=== PATIENT | male | born 1950 | race Caucasian/White ===

== ENCOUNTER → 2017-06-05 | Outpatient (CLI) | payer MEDICARE, BC ==
--- NOTE | 2017-06-05 10:47 | Diagnostic Imaging Report ---
INDICATION: Fall and right hip pain. TIME OF EXAM: 10:44 AM 2 views of the left hip were obtained. FINDINGS: The femoral acetabular alignment is normal. The joint space is well maintained. The femoral head and neck are intact. No fracture or dislocation is seen. The right-sided rami are intact. IMPRESSION: No acute bony abnormality is detected. Dictated by: Dictated on workstation # [id number]
--- NOTE | 2017-06-05 10:50 | Diagnostic Imaging Report ---
INDICATION: Fall and pelvic pain. TIME OF EXAM: 10:45 AM FINDINGS: Frontal and oblique views of the sacroiliac joints were obtained. SI joints are not widened. There is no evidence of ankylosis, sclerosis or osseous erosion. Sacrum is unremarkable. IMPRESSION: No acute bony abnormality is detected. Dictated by: Dictated on workstation # [id number]
--- NOTE | 2017-06-05 10:51 | Diagnostic Imaging Report ---
INDICATION: Fall, pelvic pain. TIME OF EXAMINATION: 10:45 a.m. FINDINGS: Frontal and lateral views of the sacrum and coccyx were obtained. Sacrococcygeal alignment appears normal. No fracture is seen. Sacral arcuate lines are intact. SI joints are not widened. Symphysis is unremarkable. IMPRESSION: No acute bony abnormality is detected. Dictated by: Dictated on workstation # [id number]
== END ==
LOC: RAD 10:11
PROVIDERS: ATTEND Family Medicine
DX: M25.551 Pain in right hip (principal); M53.3 Sacrococcygeal disorders, not elsewhere classified; R10.2 Pelvic and perineal pain; W19.XXXA Unspecified fall, initial encounter
CPT/HCPCS: 72202; 72220; 73502

== ENCOUNTER → 2018-10-16 | Outpatient (CLI) | payer MEDICARE, BC ==
[~2018-10-16] MED LIST: HOLD METFORMIN - RECEIVED CONTRAST 20 ML VIAL IV SCH; IOHEXOL 350 MG/ML 100 ML (OMNIPAQUE 350) VIAL IV ONE; NS 100 ML (IVPB) BAG IV ONE
[2018-10-16 11:46] LABS: BUN/CREATININE RATIO 16; CREATININE SERUM 0.94 MG/DL (0.60-1.30); GFR ESTIMATED > 60
--- NOTE | 2018-10-16 14:00 | Diagnostic Imaging Report ---
PROCEDURE: CT chest with contrast only. TECHNIQUE: Multiple contiguous axial images were obtained through the chest after administration of intravenous contrast. Auto Exposure Controls were utilized during the CT exam to meet ALARA standards for radiation dose reduction. INDICATION: Pneumonia. COMPARISON: No prior studies are available for comparison. FINDINGS: No axillary lymphadenopathy is detected. No mediastinal or hilar lymphadenopathy is identified. No pericardial or pleural fluid is detected. Parenchymal evaluation does show central airways to be patent. There is a calcified granuloma in the right upper lobe. Minimal linear scarring or atelectasis in the right lower lobe is seen. No infiltrate is identified. No mass is detected. The upper abdomen is unremarkable. IMPRESSION: Essentially unremarkable CT of the chest with contrast. No thoracic lymphadenopathy or evidence of pulmonary mass or infiltrate is identified. Dictated by: Dictated on workstation # [id number]
== END ==
LOC: RAD 11:12
PROVIDERS: ATTEND Nurse Practitioner Family
DX: J18.9 Pneumonia, unspecified organism (principal); J30.9 Allergic rhinitis, unspecified; Z87.891 Personal history of nicotine dependence
CPT/HCPCS: 36415; 71260; 82565; 84520

== ENCOUNTER → 2018-10-26 | Outpatient (CLI) | payer MEDICARE, BC ==
[~2018-10-26] MED LIST changes: -HOLD METFORMIN - RECEIVED CONTRAST 20 ML VIAL IV SCH; -IOHEXOL 350 MG/ML 100 ML (OMNIPAQUE 350) VIAL IV ONE; -NS 100 ML (IVPB) BAG IV ONE; +RT-ALBUTEROL SULF 2.5 MG/3 ML PRE-MIX VIAL INH ONE
== END ==
LOC: RT 10:13
PROVIDERS: ATTEND Nurse Practitioner Family
DX: J30.9 Allergic rhinitis, unspecified (principal); Z87.891 Personal history of nicotine dependence
CPT/HCPCS: 94060; 94726; 94729

== ENCOUNTER 2019-10-03 07:15 | Outpatient (RCR) | payer MEDICARE, BC ==
[~2019-10-03] VITALS: Ht 175 cm; Wt 77.2 kg
[~2019-10-03 07:15] MED LIST changes: +ASCO500T7 PO; +CALC-927 PO; +FLUT15.845 NS; +GLIP5TAB13 PO; +LISI1TAB25 PO; +LOVA20TA2 PO; +METF-397 PO; +OMEP20CA18 PO; +PIOG30TA38 PO; -RT-ALBUTEROL SULF 2.5 MG/3 ML PRE-MIX VIAL INH ONE; +VITA1CAP PO
== END 2019-10-03 10:22 | disposition home or self-care (01) ==
LOC: PREOP 07:15
PROVIDERS: ATTEND Surgery
DX: Z01.818 Encounter for other preprocedural examination (principal)
CPT/HCPCS: 87635

== ENCOUNTER 2019-10-07 07:19 | Day surgery (SDC) | payer MEDICARE, BC ==
[~2019-10-07] VITALS: Ht 175 cm; Wt 77.2 kg
--- OUTSIDE RECORDS SUMMARY | 2019-10-07 07:23 | XMS REPORT | Continuity of Care Document ---
Author Organization Unknown Address Unknown Phone Unavailable Allergies Active Description Code Type Severity Reaction Onset Reported/Identified Relationship to Patient Clinical Status Yes No Allergy Information Available [id number] Drug Allergy Unknown N/A 019 Yes No Known Drug Allergies [id number] Drug Allergy Unknown N/A 10/01/2019 Medications There is no data. Problems Date Dx Coded Attending Type Code Diagnosis Diagnosed By 02/16/1021 GUILLERMO DE LEON DO Ot Z01.8 18 ENCOUNTER FOR OTHER PREPROCEDURAL EXAMIN 06/06/2017 ADRIAN BECERRA MD Ot M25.551 PAIN IN RIGHT HIP 06/06/2017 ADRIAN BECERRA MD, Ot M53. 3 SACROCOCCYGEAL DISORDERS, NOT ELSEWHERE 06/06/2017 ADRIAN BECERRA MD Ot W19.XXXA UNSPECIFIED FALL, INITIAL ENCOUNTER 06/06/2017 ADRIAN BECERRA MD, Ot M25.551 PAIN IN RIGHT HIP 06/06/2017 ADRIAN BECERRA MD, Ot M53. 3 SACROCOCCYGEAL DISORDERS, NOT ELSEWHERE 06/06/2017 ADRIAN BECERRA MD Ot R10. 2 PELVIC AND PERINEAL PAIN 06/06/2017 ADRIAN BECERRA MD Ot W19.XXXA UNSPECIFIED FALL, INITIAL ENCOUNTER 10/18/2018 KAROLINA ALEXIS FISH CONSERVATIONIST Ot J18.9 PNEUMONIA, UNSPECIFIED ORGANISM 10/18/2018 KAROLINA ALEXIS FISH CONSERVATIONIST Ot J30.9 ALLERGIC RHINITIS, UNSPECIFIED 10/18/2018 KAROLINA ALEXIS FISH CONSERVATIONIST Ot Z87.891 PERSONAL HISTORY OF NICOTINE DEPENDENCE 10/26/2018 ADRIAN BECERRA MD Ot M25.551 PAIN IN RIGHT HIP 10/26/2018 ADRIAN BECERRA MD Ot M53. 3 SACROCOCCYGEAL DISORDERS, NOT ELSEWHERE 10/26/2018 ADRIAN BECERRA MD Ot R10. 2 PELVIC AND PERINEAL PAIN 10/26/2018 ADRIAN BECERRA MD Ot W19.XXXA UNSPECIFIED FALL, INITIAL ENCOUNTER 10/26/2018 KAROLINA ALEXIS FISH CONSERVATIONIST Ot J18.9 PNEUMONIA, UNSPECIFIED ORGANISM 10/26/2018 VANESAKAROLINA FISH CONSERVATIONIST Ot J30.9 ALLERGIC RHINITIS, UNSPECIFIED 10/26/2018 VANESA, KAROLINA Srivastava FISH CONSERVATIONIST Ot Z87.891 PERSONAL HISTORY OF NICOTINE DEPENDENCE 11/02/2018 VANESA KAROLINA Srivastava FISH CONSERVATIONIST Ot J30.9 ALLERGIC RHINITIS, UNSPECIFIED 11/02/2018 VANESAKAROLINA FISH CONSERVATIONIST Ot Z87.891 PERSONAL HISTORY OF NICOTINE DEPENDENCE 11/06/2018 VANESAKAROLINA FISH CONSERVATIONIST Ot J18.9 PNEUMONIA, UNSPECIFIED ORGANISM 11/06/2018 VANESA, KAROLINA Srivastava FISH CONSERVATIONIST Ot J30.9 ALLERGIC RHINITIS, UNSPECIFIED 11/06/2018 VANESA, KAROLINA Srivastava FISH CONSERVATIONIST Ot Z87.891 PERSONAL HISTORY OF NICOTINE DEPENDENCE 11/22/2018 KAROLINA ALEXIS APRN Ot J30.9 ALLERGIC RHINITIS, UNSPECIFIED 11/22/2018 KAROLINA ALEXIS FISH CONSERVATIONIST Ot Z87.891 PERSONAL HISTORY OF NICOTINE DEPENDENCE 10/03/2019 GUILLERMO DE LEON DO Ot Z01.8 18 ENCOUNTER FOR OTHER PREPROCEDURAL EXAMIN Procedures There is no data. Results There is no data. Encounters ACCT No. Visit Date/Time Discharge Status Pt. Type Provider Facility Loc./Unit Complaint [id number] 10/03/2019 07:15:00 020 10:22:00 DIS Outpatient GUILLERMO DE LEON DO [facility] PREOP RECTAL BLEEDING [id number] 10/26/2018 10:13:00 019 23:59:59 CLS Outpatient KAROLINA ALEXIS APRN [facility] RT HISTORY OF SMOK ING, COUGH [id number] 10/16/2018 11:12:00 019 23:59:59 CLS Outpatient KAROLINA ALEXIS APRN [facility] RAD DYSPNEA, ALLERG IC RHINITIS [id number] 06/05/2017 10:11:00 018 23:59:59 CLS Outpatient ADRIAN BECERRA MD [facility] RAD LOW BACK SACROILIAC LILLY N [id number] 10/07/2019 08:30:00 P EN Preadmit GUILLERMO DE LEON DO [facility] ENDO RECTAL BLEEDING.
--- NOTE | 2019-10-07 07:29 | Progress Note-Pre Operative ---
Pre-Operative Progress Note H&P Reviewed The H&P was reviewed, patient examined and no changes noted. Time Seen by Provider: 07:27 Date H&P Reviewed: Oct 07, 2019 Time H&P Reviewed: : Pre-Operative Diagnosis: Rectal bleed GUILLERMO DE LEON DO Oct 07, 2019 07:29
[2019-10-07 07:30] VITALS: BP 121/76
[2019-10-07] MEDS ORDERED: LACTATED RINGERS 1,000 ML IV STA (07:31)
[2019-10-07] MEDS ORDERED: proPOfol 200 MG/20 ML (DIPRIVAN) VIAL IV ONE (07:46)
[2019-10-07] MEDS ORDERED: MIDAZOLAM 2 MG/2 ML (VERSED) VIAL ONE (07:46)
[2019-10-07 08:15] VITALS: BP 126/80
--- NOTE | 2019-10-07 08:16 | Progress Note-Post Operative ---
Post-Operative Progess Note Surgeon (s)/Railroad Car Repairman (s) Surgeon GUILLERMO DE LEON DO Railroad Car Repairman: none Pre-Operative Diagnosis Rectal bleed Post-Operative Diagnosis Polyp Int hemorrhoids Procedure & Operative Findings Date of Procedure 10/07/19 Procedure Performed/Findings Colon with hot bx Anesthesia Type IV sedation by anesthesia Estimated Blood Loss Estimated blood loss (mL): scant Specimens/Packing Specimens Removed descending colon polyp GUILLERMO DE LEON DO Oct 07, 2019 08:16
--- NOTE | 2019-10-07 08:17 | Endoscopy Discharge Instruct ---
Endo Procedure/Findings Findings 1.: Polyp 2.: Internal Hemorrhoids Discharge Instructions - Activity: You might feel a little sleepy until tomorrow. This is due to the medicine you received to relax you. Until tomorrow, you should: NOT drive a car, operate machinery or power tools. NOT drink any alcoholic beverages. NOT make any important decisions or sign importortant papers. Do not return to work until tomorrow, unless otherwise instructed. Resume previous activities tomorrow. Diet: Start by taking liquids. If you tolerate liquids, advance to solid food. make an appointment for one week 1.: Colonscopy in 5 years Notify Physician - If you experience excessive bleeding, unusual abdominal pain, fever, or chest pain, contact your doctor immediately. GUILLERMO DE LEON DO Oct 07, 2019 08:17
[2019-10-07 08:20] VITALS: BP 121/76
--- NOTE | 2019-10-07 08:20 | Anesthesia-General Post-Op ---
MAC Patient Condition Mental Status/LOC: Same as Preop Cardiovascular: Satisfactory Nausea/Vomiting: Absent Respiratory: Satisfactory Pain: Controlled Complications: Absent Post Op Complications Complications None Follow Up Care/Instructions Patient Instructions None needed. Anesthesiology Discharge Order Discharge Order Patient is doing well, no complaints, stable vital signs, no apparent adverse anesthesia problems. DANIEL AL DO Oct 07, 2019 08:20
[2019-10-07 08:45] VITALS: BP 125/81
[2019-10-07 09:05] VITALS: BP 125/81
--- NOTE | 2019-10-08 03:56 | OPERATIVE REPORT ---
DATE OF SERVICE: 10/07/2019 PREOPERATIVE DIAGNOSIS: Rectal bleed. POSTOPERATIVE DIAGNOSES: Descending colon polyp and internal hemorrhoids. PROCEDURE: Colonoscopy with hot biopsy. SURGEON: Jack Maria DO PROFESSIONAL DEVELOPMENT INSTRUCTOR: None. ANESTHESIA: IV sedation by the anesthesiologist. SPECIMEN: Polyp biopsy from the descending colon. BLOOD LOSS: Scant. FLUIDS: Per anesthesia. POSTOPERATIVE CONDITION: Stable. INDICATION FOR PROCEDURE: The patient is a 69-year-old male who noted some rectal bleeding and clots and needed to get a workup. FINDINGS: The patient had some grade I to II internal hemorrhoids, which most likely causes bleeding and he had a small polyp that we almost completely removed with hot biopsy. PROCEDURE NOTE: After informed consent was obtained, the patient was brought to the endoscopy suite, placed in bed in left lateral decubitus position. He was administered IV sedation by the anesthesiologist who then monitored his vitals the entire time, heart rate, blood pressure and pulse ox and the scope was inserted, pushed all the way to about 150 cm, able to get to the cecum, took a picture of appendiceal orifice, noted the ileocecal valve and then slowly withdrew the scope insufflating to look at the circumferentially at the ochoa looking at the cecum, up the ascending colon to the hepatic flexure and then down the transverse colon, the splenic flexure, into the descending colon. In the descending colon, saw small flat polyp. I elected do a hot biopsy of this, looked like completely with hot biopsy and then continued down through the sigmoid into the rectum, retroflexed in the rectal vault, saw some minimal internal hemorrhoids, maybe grade I to II, took a picture and then removed the scope. The patient tolerated the procedure, recovered in endoscopy suite. Job ID: [id number] DocumentID: [id number] Dictated Date: 10/07/2019 20:27:13 Emt I/85 Date: 10/08/2019 03:56:21 Dictated By: JACK MARIA DO
== END 2019-10-07 09:05 | disposition home or self-care (01) ==
LOC: ENDO 07:19
PROVIDERS: ATTEND Surgery
DX: D12.4 Benign neoplasm of descending colon (principal); K62.5 Hemorrhage of anus and rectum; K64.8 Other hemorrhoids; K64.1 Second degree hemorrhoids; K21.9 Gastro-esophageal reflux disease without esophagitis; J44.9 Chronic obstructive pulmonary disease, unspecified; E11.9 Type 2 diabetes mellitus without complications; I10 Essential (primary) hypertension; Z79.51 Long term (current) use of inhaled steroids; Z79.84 Long term (current) use of oral hypoglycemic drugs; Z79.899 Other long term (current) drug therapy; Z86.010 Personal history of colon polyps; Z87.891 Personal history of nicotine dependence; Z80.9 Family history of malignant neoplasm, unspecified
CPT/HCPCS: 88305

== ENCOUNTER 2021-04-24 08:41 | Emergency (ER) | payer MEDICARE, BC ==
[~2021-04-24] VITALS: Ht 172 cm; Wt 80.0 kg
[~2021-04-24 08:41] MED LIST changes: -ACHD5005 PO; -CEPH500T PO; -CIPR500T5 PO; -ONDA4TAB11 SL; -TMSL.4C PO
[2021-04-24] MEDS ORDERED: LACTATED RINGERS 1,000 ML IV ONE ×3 (08:53→10:30)
[2021-04-24] MEDS ORDERED: ONDANSETRON 4 MG/2 ML (SDV) Z0FRAN ONE (08:53)
[2021-04-24] MEDS ORDERED: KETOROLAC 30 MG/ML VIAL ONE (08:53)
[2021-04-24] MEDS ORDERED: ONDANSETRON 4 MG/2 ML (SDV) Z0FRAN IVP ONE (09:00)
[2021-04-24] MEDS ORDERED: KETOROLAC 30 MG/ML VIAL IVP ONE (09:00)
[2021-04-24 09:01] LABS: BASOPHILS % (AUTO) 0 % (0-10); EOSINOPHILS % (AUTO) 0 % (0-10); HEMATOCRIT 46 % (40-54); HEMOGLOBIN 14.6 g/dL (13.3-17.7); LYMPHOCYTES # (AUTO) 1.2 10^3/uL (1.0-4.0); LYMPHOCYTES % (AUTO) 14 % (12-44); MEAN CORPUSCULAR HEMOGLOBIN 27 pg (25-34); MEAN CORPUSCULAR HGB CONC 32 g/dL (32-36); MEAN CORPUSCULAR VOLUME 86 fL (80-99); MEAN PLATELET VOLUME 9.5 fL (9.0-12.2); MONOCYTES # (AUTO) 0.7 10^3/uL (0.0-1.0); MONOCYTES % (AUTO) 8 % (0-12); NEUTROPHILS # (AUTO) 6.8 10^3/uL (1.8-7.8); NEUTROPHILS % (AUTO) 77 % (42-75); PLATELET COUNT 296 10^3/uL (130-400); WHITE BLOOD COUNT 8.9 10^3/uL (4.3-11.0)
[2021-04-24 09:17] LABS: ALBUMIN 4.2 GM/DL (3.2-4.5); POTASSIUM 4.2 MMOL/L (3.6-5.0)
[2021-04-24 09:18] LABS: CALCIUM 9.4 MG/DL (8.5-10.1)
[2021-04-24 09:19] LABS: TOTAL PROTEIN 7.8 GM/DL (6.4-8.2)
[2021-04-24 09:21] LABS: BILIRUBIN,TOTAL 0.6 MG/DL (0.1-1.0)
[2021-04-24 09:23] LABS: CREATININE SERUM 1.19 MG/DL (0.60-1.30)
--- NOTE | 2021-04-24 09:42 | ED General ---
General Chief Complaint: Back Problems Stated Complaint: KIDNEY STONE Nursing Triage Note: PT AMB TO RM 6 PT CO OF L SIDED KIDNEYSTONE PAIN, STARTED ON MONDAY. PT STATES HAS TAKEN A HYDROCODONE EARLIER THIS AM. Source of Information: Patient Exam Limitations: No Limitations History of Present Illness Date Seen by Provider: Apr 24, 2021 Time Seen by Provider: 08:45 Initial Comments This is 71-year-old gentleman presents to the emergency room with complaints of left lower back and flank pain with associated nausea. He has history of ureteral stones and states this feels similar. He had questionable blood in his urine earlier. He denies any other acute symptoms. This pain started yeste rday. He took a leftover hydrocodone this morning. He has never required interventions to treat the prior kidney stones. Allergies and Home Medications Allergies Coded Allergies: No Known Drug Allergies (Unverified , 10/01/19) Patient Home Medication List Home Medication List Reviewed: Yes Ascorbic Acid (Ascorbic Acid) 500 Mg Tablet, 500 MG PO DAILY, (Reported) Entered as Reported by: HARDEEP CAZARES on 10/01/19 1308 Calcium Carb/Mag Ox/Zinc Sulf (Mpszakw-Srusgntey-Dosz Tablet) 1 Each Tablet, 1 EACH PO DAILY, (Reported) Entered as Reported by: HARDEEP CAZARES on 10/01/19 1308 Ciprofloxacin HCl (Ciprofloxacin HCl) 500 Mg Tablet, 500 MG PO BID Prescribed by: NOÉ MELISSA on 04/24/21 1630 Fluticasone Propionate (Fluticasone Propionate) 15.8 Ml [place].susp, 15.8 ML NS DAILY, (Reported) Entered as Reported by: HARDEEP CAZARES on 10/01/19 1308 Glipizide (Glipizide) 5 Mg Tablet, 10 MG PO BID, (Reported) Entered as Reported by: HARDEEP CAZARES on 10/01/19 1308 Hydrocodone/Acetaminophen (Hydrocodone-Acetamin 5-325 mg) 1 Each Tablet, 1-2 TAB PO Q4H PRN for PAIN-MODERATE (5-7) Prescribed by: NOÉ MELISSA on 04/24/21 1021 Lisinopril/Hydrochlorothiazide (Lisinopril-Hctz 20-12.5 mg Tab) 1 Each Tablet, 1 EACH PO DAILY, (Reported) Entered as Reported by: HARDEEP CAZARES on 10/01/19 1308 Lovastatin (Lovastatin) 20 Mg Tablet, 20 MG PO DAILY, (Reported) Entered as Reported by: HARDEEP CAZARES on 10/01/19 1308 Metformin HCl (Metformin HCl) 500 Mg Tablet, 500 MG PO TID, (Reported) Entered as Reported by: HARDEEP CAZARES on 10/01/19 1308 Omeprazole (Omeprazole) 20 Mg Capsule.dr, 20 MG PO DAILY, (Reported) Entered as Reported by: HARDEEP CAZARES on 10/01/19 1308 Ondansetron (Ondansetron Odt) 4 Mg Tab.rapdis, 4 MG SL Q4H PRN for NAUSEA/VOMITING Prescribed by: NOÉ MELISSA on 04/24/21 1021 Pioglitazone HCl (Actos) 30 Mg Tablet, 30 MG PO DAILY, (Reported) Entered as Reported by: HARDEEP CAZARES on 10/01/19 130 Tamsulosin HCl (Flomax) 0.4 Mg Cap, 0.4 MG PO DAILY Prescribed by: NOÉ MELISSA on 04/24/21 1021 Vitamin B Complex (Vitamin B Complex) 1 Each Capsule, 1 EACH PO DAILY, (Reported) Entered as Reported by: HARDEEP CAZARES on 10/01/19 1308 Review of Systems Review of Systems Constitutional: no symptoms reported EENTM: no symptoms reported Respiratory: no symptoms reported Cardiovascular: no symptoms reported Gastrointestinal: see HPI Genitourinary: see HPI Musculoskeletal: no symptoms reported Skin: no symptoms reported Psychiatric/Neurological: No Symptoms Reported Hematologic/Lymphatic: No Symptoms Reported Past Qnbxbiw-Nqxscl-Dolrfp Hx Patient Social History Tobacco Use?: No Substance use?: No Alcohol Use?: No Pt feels they are or have been: No Seasonal Allergies Seasonal Allergies: Yes Past Medical History Surgeries: Yes (HENORRHOIDECTOMY, CATARACTS) Tonsillectomy, Vasectomy Respiratory: Yes (MILD) COPD Cardiac: Yes High Cholesterol, Hypertension, Valvular Heart Disease Neurological: No Sexually Transmitted Disease: No HIV/AIDS: No Genitourinary: Yes Kidney Stones Gastrointestinal: Yes (RECTAL BLEEDING) Gastroesophageal Reflux, Chronic Diarrhea Musculoskeletal: No Endocrine: Yes Diabetes, Non-Insulin dep HEENT: Yes (GLASSES, DENTURES) Loss of Vision: Denies Hearing Impairment: Denies Cancer: No Psychosocial: No Integumentary: No Blood Disorders: No Adverse Reaction/Blood Tranf: No (N/A) Physical Exam Vital Signs Vital Signs - First Documented 04/24/21 08:45 Temp 36.0 Pulse 103 Resp 18 B/P (MAP) 149/96 (113) Pulse Ox 97 O2 Delivery Room Air Capillary Refill : Less Than 3 Seconds Height, Weight, BMI Height: '" Weight: lbs. oz. kg; 27.00 BMI Method: General Appearance: No Apparent Distress, WD/WN HEENT: PERRL/EOMI, Normal ENT Inspection Respiratory: Lungs Clear, Normal Breath Sounds, No Accessory Muscle Use Cardiovascular: Regular Rate, Rhythm, No Edema, No Murmur Gastrointestinal: Normal Bowel Sounds, Non Tender, Soft Back: Normal Inspection, No CVA Tenderness, No Vertebral Tenderness Extremity: Normal Inspection, No Pedal Edema Neurologic/Psychiatric: Alert, Oriented x3, No Motor/Sensory Deficits, Normal Mood/Affect, refrigeration mechanic helper II-XII Norm as Tested Skin: Normal Color, Warm/Dry Progress/Results/Core Measures Suspected Sepsis SIRS Temperature: Pulse: 103 Respiratory Rate: 18 Laboratory Tests 04/24/21 08:48: White Blood Count 8.9 Blood Pressure 149 /96 Mean: 113 Laboratory Tests 04/24/21 08:48: Creatinine 1.19, Platelet Count 296, Total Bilirubin 0.6 Results/Orders Lab Results Laboratory Tests Test 04/24/21 08:48 04/24/21 16:00 Range/Units White Blood Count 8.9 4.3-11.0 10^3/uL Red Blood Count 5.33 4.30-5.52 10^6/uL Hemoglobin 14.6 13.3-17.7 g/dL Hematocrit 46 40-54 % Mean Corpuscular Volume 86 80-99 fL Mean Corpuscular Hemoglobin 27 25-34 pg Mean Corpuscular Hemoglobin Concent 32 32-36 g/dL Red Cell Distribution Width 15.6 H 10.0-14.5 % Platelet Count 296 130-400 10^3/uL Mean Platelet Volume 9.5 9.0-12.2 fL Immature Granulocyte % (Auto) 1 % Neutrophils (%) (Auto) 77 H 42-75 % Lymphocytes (%) (Auto) 14 12-44 % Monocytes (%) (Auto) 8 0-12 % Eosinophils (%) (Auto) 0 0-10 % Basophils (%) (Auto) 0 0-10 % Neutrophils # (Auto) 6.8 1.8-7.8 10^3/uL Lymphocytes # (Auto) 1.2 1.0-4.0 10^3/uL Monocytes # (Auto) 0.7 0.0-1.0 10^3/uL Eosinophils # (Auto) 0.0 0.0-0.3 10^3/uL Basophils # (Auto) 0.0 0.0-0.1 10^3/uL Immature Granulocyte # (Auto) 0.1 0.0-0.1 10^3/uL Sodium Level 137 135-145 MMOL/L Potassium Level 4.2 3.6-5.0 MMOL/L Chloride Level 101 98-107 MMOL/L Carbon Dioxide Level 22 21-32 MMOL/L Anion Gap 14 5-14 MMOL/L Blood Urea Nitrogen 19 H 7-18 MG/DL Creatinine 1.19 0.60-1.30 MG/DL Estimat Glomerular Filtration Rate 64 BUN/Creatinine Ratio 16 Glucose Level 229 H 70-105 MG/DL Calcium Level 9.4 8.5-10.1 MG/DL Corrected Calcium 9.2 8.5-10.1 MG/DL Total Bilirubin 0.6 0.1-1.0 MG/DL Aspartate Amino Transf (AST/SGOT) 34 5-34 U/L Alanine Aminotransferase (ALT/SGPT) 74 H 0-55 U/L Alkaline Phosphatase 98 40-136 U/L Total Protein 7.8 6.4-8.2 GM/DL Albumin 4.2 3.2-4.5 GM/DL Urine Color YELLOW Urine Clarity CLEAR Urine pH 5.5 5-9 Urine Specific [place] 1.025 H 1.016-1.022 Urine Protein TRACE H NEGATIVE Urine Glucose (UA) TRACE H NEGATIVE Urine Ketones TRACE H NEGATIVE Urine Nitrite NEGATIVE NEGATIVE Urine Bilirubin NEGATIVE NEGATIVE Urine Urobilinogen 0.2 < = 1.0 MG/DL Urine Leukocyte Esterase TRACE H NEGATIVE Urine RBC (Auto) 2+ H NEGATIVE Urine RBC 5-10 H /HPF Urine WBC 5-10 H /HPF Urine Squamous Epithelial Cells NONE /HPF Urine Crystals PRESENT H /LPF Urine Calcium Oxalate Crystals LARGE H /LPF Urine Bacteria NEGATIVE /HPF Urine Casts NONE /LPF Urine Mucus NEGATIVE /LPF Urine Culture Indicated YES My Orders Orders - NOÉ EDWARDS MD Cbc With Automated Diff (04/24/21 08:45) Comprehensive Metabolic Panel (04/24/21 08:45) Ed Iv/Invasive Line Start (04/24/21 08:45) Ondansetron Injection (Zofran Injectio (04/24/21 09:00) Ketorolac Injection (Toradol Injection) (04/24/21 09:00) Lactated Ringers (Lr 1000 Ml Iv Solution (04/24/21 09:00) Ondansetron Injection (Zofran Injectio (04/24/21 08:53) Ketorolac Injection (Toradol Injection) (04/24/21 08:53) Lactated Ringers (Lr 1000 Ml Iv Solution (04/24/21 08:53) Ct Abd/Pelvis Wo(Kidney Stone) (04/24/21 09:32) Lactated Ringers (Lr 1000 Ml Iv Solution (04/24/21 10:30) Abdomen/Kub 1view (04/24/21 12:04) Urinalysis (04/24/21 16:00) Urine Culture (04/24/21 16:00) Medications Given in ED Current Medications Medications Dose Ordered Sig/Orlin Route Start Time Stop Time Status Last Admin Dose Admin Ketorolac Tromethamine 15 mg ONCE ONCE IVP 04/24/21 09:00 04/24/21 09:01 DC 04/24/21 08:58 15 MG Lactated Ringer's 1,000 ml @ 0 mls/hr Q0M ONCE IV 04/24/21 09:00 04/24/21 09:01 DC 04/24/21 08:59 1,000 MLS/HR Lactated Ringer's 1,000 ml @ 0 mls/hr Q0M ONCE IV 04/24/21 10:30 04/24/21 10:31 DC 04/24/21 10:24 1,000 MLS/HR Ondansetron HCl 4 mg ONCE ONCE IVP 04/24/21 09:00 04/24/21 09:01 DC 04/24/21 08:58 4 MG Vital Signs/I&O 04/24/21 04/24/21 08:45 12:11 Temp 36.0 Pulse 103 84 Resp 18 18 B/P (MAP) 149/96 (113) 130/82 Pulse Ox 97 97 O2 Delivery Room Air Room Air Capillary Refill : Less Than 3 Seconds Blood Pressure Mean: 113 Progress Note #1: Time: 09:41 Progress Note Patient has not yet been able to produce a urine specimen. He did receive a liter of IV fluid. Toradol and Zofran were given for symptom management. After discussing with the patient. We have decided to proceed with CT scan for further evaluation. Progress Note #2: Progress Note Obstructing ureteral stone was found in the left ureter. Despite receiving 2 L of IV fluid, patient was not able to produce a urine specimen. He was given an order form for an outpatient specimen. Antibiotics were prescribed prophylactically. See discharge instructions for further information. Diagnostic Imaging Diagonstic Imaging: CT Plain Films/CT/US/NM/MRI: abdomen, pelvis Comments CT abdomen and pelvis viewed by me and report reviewed. See report below: NAME: TARAN BELTRE [facility] REC#: [id number] PT STATUS: REG ER : 1950 PHYSICIAN: NOÉ EDWARDS MD ADMIT DATE: 04/24/21/ER Draft Date of Exam:04/24/21 CT ABD/PELVIS WO(KIDNEY STONE) PROCEDURE: CT urinary tract, rule out kidney stone. TECHNIQUE: Multiple contiguous axial images were obtained through the abdomen and pelvis without the use of intravenous contrast. Auto Exposure Controls were utilized during the CT exam to meet ALARA standards for radiation dose reduction. INDICATION: Left-sided flank pain. COMPARISON: None. FINDINGS: The heart is unremarkable. Subsegmental atelectasis is seen in the lung bases. Small hiatal hernia is present. Calculus is seen in the proximal left ureter measuring 0.4 cm with mild left-sided hydroureteronephrosis. Additional normal-appearing calculus is seen in the left kidney measuring 0.2 cm. No hydronephrosis is seen on the right. Punctate nonobstructing calculi are seen in the right kidney measuring up to 0.2 cm. The urinary bladder is nondistended. There is hepatic steatosis with focal fatty sparing along the gallbladder fossa. The gallbladder is unremarkable. The spleen, pancreas, and adrenal glands have a normal appearance. There is no pathologically enlarged mesenteric or retroperitoneal adenopathy. The bowel loops are nondilated. The appendix is visualized in the right lower quadrant and has a normal appearance. There is no free fluid or free air. No acute osseous abnormalities. There is calcified aortic and iliac atherosclerotic plaque without aneurysm. There is no free air, loculated collection, or adenopathy in the pelvis. IMPRESSION: 1. Obstructing calculus in the proximal left ureter measuring 0.4 cm with mild left-sided hydroureteronephrosis. 2. Bilateral nonobstructing calculi measuring up to 0.2 cm. 3. Hepatic steatosis. 4. Small hiatal hernia. Dictated on workstation # [id number] Dict: 04/24/21 0958 Trans: 04/24/21 1003 CVB [id number] Interpreted by: CASSANDRA BRADLEY DO Diagonstic Imaging: Xray Plain Films/CT/US/NM/MRI: abdomen Comments NAME: TARAN BELTRE [facility] REC#: [id number] PT STATUS: DEP ER : 1950 PHYSICIAN: NOÉ EDWARDS MD ADMIT DATE: 04/24/21/ER Signed Date of Exam:04/24/21 ABDOMEN/KUB 1VIEW EXAMINATION: Abdominal radiographs, single view, 2 images. DATE: April 24, 2021. CLINICAL INDICATION: 71-year-old male, left-sided abdominal pain. History of renal stones. COMPARISON: CT abdomen and pelvis April 24, 2021. COMMENTS: There is a calcification in the left side of the pelvis which most likely reflects a phlebolith and does appear to be present on prior axial image 94. The previously noted left ureteral stone on prior CT abdomen pelvis exam is not well seen radiographically. There are gas filled segments of bowel which are not grossly distended. There is no identified portal venous gas, pneumatosis, or free intracranial air. IMPRESSION: 1. Calcification in the left side of the pelvis likely reflects a phlebolith. 2. The previously noted left ureteral stone is not well seen radiographically. 3. Unremarkable bowel gas pattern. Dictated by: Dictated on workstation # [id number] Dict: 04/24/21 1216 Trans: 04/24/21 1240 [facility] [id number] Interpreted by: AGUEDA VIGIL MD Electronically signed by: AGUEDA VIGIL MD 04/24/21 1240 Departure Impression Primary Impression: Left ureteral stone Disposition: 01 HOME, SELF-CARE Condition: Improved Departure-Patient Inst. Decision time for Depature: 10:18 Referrals: ADRIAN BECERRA MD (PCP/Family) Primary Care Physician NICOLASA CARROLL MD Patient Instructions: Kidney Stone, Adult ED Add. Discharge Instructions: Drink plenty of clear liquids to stay well-hydrated. Use hydrocodone as prescribed for pain. Consider taking a stool softener such as Colace while using hydrocodone to prevent constipation. Take Flomax daily until you pass the kidney stone. Strain your urine with every urination and bring any stone collected to your follow-up appointment. Follow-up with your primary care provider and a urologist next week. Dr. Alvarado's contact information is listed below for your convenience. Complete your antibiotic as prescribed for urinary tract infection prophylaxis. Return to the hospital with a urine specimen when you are able to urinate. Bring your order form with you. Call with questions or concerns. Return to the ER if you have worsening symptoms, especially if you develop fever or uncontrollable pain. All discharge instructions reviewed with patient and/or family. Voiced understanding. Scripts Ciprofloxacin HCl (Ciprofloxacin HCl) 500 Mg Tablet 500 MG PO BID, #14 TAB Prov: NOÉ EDWARDS MD 04/24/21 Hydrocodone/Acetaminophen (Hydrocodone-Acetamin 5-325 mg) 1 Each Tablet 1-2 TAB PO Q4H PRN for PAIN-MODERATE (5-7), #15 TAB Prov: NOÉ EDWARDS MD 04/24/21 Ondansetron (Ondansetron Odt) 4 Mg Tab.rapdis 4 MG SL Q4H PRN for NAUSEA/VOMITING, #10 TAB Prov: NOÉ EDWARDS MD 04/24/21 Tamsulosin HCl (Flomax) 0.4 Mg Cap 0.4 MG PO DAILY, #30 CAP Prov: NOÉ EDWARDS MD 04/24/21 Copy Copies To 1: ADRIAN BECERRA MD Copies To 2: NICOLASA CARROLL MD, JOSHUA T MD Apr 24, 2021 09:42
--- NOTE | 2021-04-24 10:04 | Diagnostic Imaging Report ---
PROCEDURE: CT urinary tract, rule out kidney stone. TECHNIQUE: Multiple contiguous axial images were obtained through the abdomen and pelvis without the use of intravenous contrast. Auto Exposure Controls were utilized during the CT exam to meet ALARA standards for radiation dose reduction. INDICATION: Left-sided flank pain. COMPARISON: None. FINDINGS: The heart is unremarkable. Subsegmental atelectasis is seen in the lung bases. Small hiatal hernia is present. Calculus is seen in the proximal left ureter measuring 0.4 cm with mild left-sided hydroureteronephrosis. Additional normal-appearing calculus is seen in the left kidney measuring 0.2 cm. No hydronephrosis is seen on the right. Punctate nonobstructing calculi are seen in the right kidney measuring up to 0.2 cm. The urinary bladder is nondistended. There is hepatic steatosis with focal fatty sparing along the gallbladder fossa. The gallbladder is unremarkable. The spleen, pancreas, and adrenal glands have a normal appearance. There is no pathologically enlarged mesenteric or retroperitoneal adenopathy. The bowel loops are nondilated. The appendix is visualized in the right lower quadrant and has a normal appearance. There is no free fluid or free air. No acute osseous abnormalities. There is calcified aortic and iliac atherosclerotic plaque without aneurysm. There is no free air, loculated collection, or adenopathy in the pelvis. IMPRESSION: 1. Obstructing calculus in the proximal left ureter measuring 0.4 cm with mild left-sided hydroureteronephrosis. 2. Bilateral nonobstructing calculi measuring up to 0.2 cm. 3. Hepatic steatosis. 4. Small hiatal hernia. Dictated by: Dictated on workstation # [id number]
[2021-04-24] MEDS ORDERED: TMSL.4C PO (10:21)
[2021-04-24] MEDS ORDERED: ONDA4TAB11 SL (10:21)
[2021-04-24] MEDS ORDERED: ACHD5005 PO (10:21)
[2021-04-24] MEDS ORDERED: CEPH500T PO (12:01)
[2021-04-24 12:11] VITALS: BP 130/82
--- NOTE | 2021-04-24 12:23 | Diagnostic Imaging Report ---
EXAMINATION: Abdominal radiographs, single view, 2 images. DATE: April 24, 2021. CLINICAL INDICATION: 71-year-old male, left-sided abdominal pain. History of renal stones. COMPARISON: CT abdomen and pelvis April 24, 2021. COMMENTS: There is a calcification in the left side of the pelvis which most likely reflects a phlebolith and does appear to be present on prior axial image 94. The previously noted left ureteral stone on prior CT abdomen pelvis exam is not well seen radiographically. There are gas filled segments of bowel which are not grossly distended. There is no identified portal venous gas, pneumatosis, or free intracranial air. IMPRESSION: 1. Calcification in the left side of the pelvis likely reflects a phlebolith. 2. The previously noted left ureteral stone is not well seen radiographically. 3. Unremarkable bowel gas pattern. Dictated by: Dictated on workstation # [id number]
[2021-04-24] MEDS ORDERED: CIPR500T5 PO (16:30)
[2021-04-24 16:49] LABS: BILIRUBIN,URINE NEGATIVE (NEGATIVE); CLARITY,URINE CLEAR; COLOR,URINE YELLOW; GLUCOSE, URINE (UA) TRACE (NEGATIVE); KETONES,URINE TRACE (NEGATIVE); LEUKOCYTE ESTERASE ,URINE TRACE (NEGATIVE); NITRITE,URINE NEGATIVE (NEGATIVE); PH,URINE 5.5 (5-9); PROTEIN,URINE TRACE (NEGATIVE)
[2021-04-24 16:57] LABS: BACTERIA,URINE NEGATIVE /HPF; CALCIUM OXALATE CRYSTALS,UR LARGE /LPF
== END 2021-04-24 12:20 | disposition home or self-care (01) ==
LOC: EDUNIT# 08:41 → ER 08:42
DX: N13.2 Hydronephrosis with renal and ureteral calculous obstruction (principal); J44.9 Chronic obstructive pulmonary disease, unspecified; I10 Essential (primary) hypertension; K21.9 Gastro-esophageal reflux disease without esophagitis; E78.00 Pure hypercholesterolemia, unspecified; E11.9 Type 2 diabetes mellitus without complications; Z79.84 Long term (current) use of oral hypoglycemic drugs; Z79.899 Other long term (current) drug therapy
CPT/HCPCS: 36415; 74018; 74176; 80053; 81000; 85025; 87088

== ENCOUNTER → 2021-04-24 | Outpatient (CLI) | payer MEDICARE, BC ==
[~2021-04-24] MED LIST changes: +ACHD5005 PO; +CEPH500T PO; +CIPR500T5 PO; -LISI1TAB25 PO; +LISI1TAB46 PO; +ONDA4TAB11 SL; +TMSL.4C PO
== END ==
LOC: LAB 16:31
PROVIDERS: ATTEND Family Medicine
DX: N20.1 Calculus of ureter (principal)

== ENCOUNTER → 2021-04-28 | Outpatient (CLI) | payer MEDICARE, BC ==
[~2021-04-28] MED LIST changes: +ACHD5005 PO; +CALC-687 PO; +CEPH500T PO; +CIPR500T5 PO; +KETO10TA PO; +NITR-65 PO; +ONDA4TAB11 SL; +TMSL.4C PO
--- NOTE | 2021-04-28 15:47 | Diagnostic Imaging Report ---
INDICATION: Left ureteral calculus. COMPARISON: CT dated 04/24/2021. FINDINGS: Two frontal radiographic views of the abdomen were obtained and demonstrate a 6 mm calculus projecting over the left transverse process of L4. This is felt to correspond to the ureteral calculus seen on the previous CT. This appears to have migrated slightly distally when compared to 04/24/2021. Small bowel loops are nondistended. There is no large collection of free intraperitoneal air. No unexpected radiopaque foreign bodies are seen. IMPRESSION: Probable retained left mid ureteral calculus. Dictated by: Dictated on workstation # [id number]
== END ==
LOC: RAD 14:01
PROVIDERS: ATTEND Urology
DX: N20.1 Calculus of ureter (principal)
CPT/HCPCS: 74018

== ENCOUNTER 2021-04-29 05:41 | Outpatient (CLI) | payer MEDICARE, BC ==
[~2021-04-29] VITALS: Ht 175.3 cm; Wt 80.0 kg
[~2021-04-29 05:41] MED LIST changes: -CALC-687 PO; -KETO10TA PO; -NITR-65 PO
[2021-04-30] MEDS ORDERED: CALC-687 PO (10:00)
== END 2021-04-30 10:07 | disposition home or self-care (01) ==
LOC: PREOP 05:41
PROVIDERS: ATTEND Urology
DX: Z01.818 Encounter for other preprocedural examination (principal)

== ENCOUNTER 2021-05-04 05:55 | Day surgery (SDC) | payer MEDICARE, BC ==
[2021-05-04] VITALS (10 sets, daily range): BP systolic 126–160; BP diastolic 73–83
[~2021-05-04] VITALS: Ht 175.3 cm; Wt 80.0 kg
[~2021-05-04 05:55] MED LIST changes: +CALC-687 PO
[2021-05-04] MEDS ORDERED: LACTATED RINGERS 1,000 ML IV PRN (06:15)
[2021-05-04] MEDS ORDERED: cefTRIAXone 1 GM PRE-MIX 50 ML IV NR (06:30)
--- NOTE | 2021-05-04 07:12 | Diagnostic Imaging Report ---
INDICATION: Stones, ESWL. COMPARISON: 04/28/2021 FINDINGS: Left pelvic calcification with central lucency stable from prior presumed phlebolith. Previously there was a calculus at the level of the left 4th lumbar transverse process. This cannot be clearly visualized but could be obscured by overlying bowel content. No adverse development. IMPRESSION: Left ureteral stone not clearly visualized but limited by overlying bowel content. No adverse development found. Dictated by: Dictated on workstation # [id number]
--- NOTE | 2021-05-04 07:14 | Progress Note-Pre Operative ---
Pre-Operative Progress Note H&P Reviewed The H&P was reviewed, patient examined and no changes noted. Date Seen by Provider: May 04, 2021 Time Seen by Provider: 07:14 Date H&P Reviewed: May 04, 2021 Time H&P Reviewed: 07:14 Pre-Operative Diagnosis: LT PROXIMAL URETERAL STONE NICOLASA CARROLL MD May 04, 2021 07:14
[2021-05-04] MEDS ORDERED: MIDAZOLAM 2 MG/2 ML (VERSED) VIAL ONE (07:51)
[2021-05-04] MEDS ORDERED: ONDANSETRON 4 MG/2 ML (SDV) Z0FRAN ONE (07:51)
[2021-05-04] MEDS ORDERED: fentaNYL INJ 100 MCG/2 ML AMP ONE (07:51)
[2021-05-04] MEDS ORDERED: LIDOCAINE PF 2% 5 ML (XYLOCAINE) VIAL ONE (07:51)
[2021-05-04] MEDS ORDERED: SEVOFLURANE (ULTANE) 15 ML INHAL SOLN ONE (07:51)
[2021-05-04] MEDS ORDERED: proPOfol 200 MG/20 ML (DIPRIVAN) VIAL IV ONE (07:51)
--- NOTE | 2021-05-04 08:20 | Progress Note-Post Operative ---
Post-Operative Progess Note Surgeon (s)/Sap Functional Analyst (s) Surgeon NICOLASA CARROLL MD Sap Functional Analyst: NONE Pre-Operative Diagnosis LT PROXIMAL URETERAL STONE Post-Operative Diagnosis SAME Procedure & Operative Findings Date of Procedure 05/04/21 Procedure Performed/Findings LT ESWL Anesthesia Type GENERAL Estimated Blood Loss Estimated blood loss (mL): NONE Specimens/Packing Specimens Removed NONE Packing: NONE NICOLASA CARROLL MD May 04, 2021 08:20
--- NOTE | 2021-05-04 08:22 | Discharge Inst-Urology ---
Discharge Inst-Urology Reconcile Patient Problems Problems Reviewed?: Yes Final Diagnosis LT PROXIMAL URETERAL STONE Patient Instructions/Follow Up Plan/Assessment/Instructions Please make appointment to been seen in office in 2 weeks. KUB prior to it KUB on way home Post ESWL instructions Increase oral fluids for 48 hours and then as needed. Diet and Activity as tolerated. If questions or concerns contact your physician Or seek help at emergency department. NICOLASA CARROLL MD May 04, 2021 08:22
[2021-05-04] MEDS ORDERED: FUROSEMIDE 40 MG/4 ML INJ (LASIX) ONE (08:32)
[2021-05-04] MEDS ORDERED: KETOROLAC 30 MG/ML VIAL ONE (08:32)
[2021-05-04] MEDS ORDERED: HYDROmorphone 2 MG/ML VIAL (DILAUDID) IV ONE (09:00)
[2021-05-04] MEDS ORDERED: ONDANSETRON 4 MG/2 ML (SDV) Z0FRAN IVP PRN (09:00)
[2021-05-04] MEDS ORDERED: TMSL.4C PO (09:35)
[2021-05-04] MEDS ORDERED: NITR-65 PO (09:35)
[2021-05-04] MEDS ORDERED: KETO10TA PO (09:35)
--- NOTE | 2021-05-04 09:52 | Anesthesia-General Post-Op ---
General Patient Condition Mental Status/LOC: Same as Preop Cardiovascular: Satisfactory Nausea/Vomiting: Absent Respiratory: Satisfactory Pain: Controlled Complications: Absent Post Op Complications Complications None Follow Up Care/Instructions Patient Instructions None needed. Anesthesia/Patient Condition Patient Condition Patient is doing well, no complaints, stable vital signs, no apparent adverse anesthesia problems. No complications reported per nursing. D/C home per [facility] Criteria: Yes GONSALO QUAN CRNA May 04, 2021 09:52
--- NOTE | 2021-05-04 10:11 | Diagnostic Imaging Report ---
INDICATION: Post lithotripsy COMPARISON: 05/04/2021. TECHNIQUE: Two radiographs of the abdomen dated 05/04/2021. FINDINGS: 3 mm round calcification within the lateral aspect of the left pelvis is again identified and stable, which has been previously shown to relate to a phlebolith. No definite additional calcifications are seen overlying the expected location of the bilateral renal shadows or the expected course of bilateral ureters. Nonobstructive bowel gas pattern. No free air. No acute osseous abnormality. Surgical clips overlying the bilateral inguinal regions. IMPRESSION: Nonobstructive bowel gas pattern without free air. Phlebolith within the left pelvis. Dictated by: Dictated on workstation # [id number]
--- NOTE | 2021-05-04 12:10 | OPERATIVE REPORT ---
DATE OF SERVICE: 05/04/2021 PREOPERATIVE DIAGNOSIS: Left proximal ureteral stone. POSTOPERATIVE DIAGNOSIS: Left proximal ureteral stone. OPERATION PERFORMED: Left ESWL. SURGEON: Tyler Carroll MD. ANESTHESIA: General. COMPLICATIONS: None. DESCRIPTION OF PROCEDURE: Under satisfactory general anesthesia, the patient in supine position on the ESWL table, the left proximal ureteral stone was localized. Shocks were delivered at kV starting at 4 up to 6. A total of 2000 shocks completely fragmented the stone that was not visualized anymore. The patient received 40 mg of Lasix and 30 mg of Toradol IV at the end of the procedure. He tolerated the procedure and anesthesia well and was sent to recovery room in a stable condition. CC: Dr. Torito Crews - requested, unable to deliver. Job ID: [id number] DocumentID: [id number] Dictated Date: 05/04/2021 08:34:07 Medical Assembly Date: 05/04/2021 10:20:50 Dictated By: TYLER CARROLL MD
== END 2021-05-04 10:30 | disposition home or self-care (01) ==
LOC: SDC 05:55
PROVIDERS: ATTEND Urology
DX: N20.1 Calculus of ureter (principal); E11.9 Type 2 diabetes mellitus without complications; I10 Essential (primary) hypertension; K21.9 Gastro-esophageal reflux disease without esophagitis; J44.9 Chronic obstructive pulmonary disease, unspecified; Z87.891 Personal history of nicotine dependence; Z79.84 Long term (current) use of oral hypoglycemic drugs; Z79.899 Other long term (current) drug therapy
CPT/HCPCS: 74018; 82947; 87081

== ENCOUNTER → 2021-05-24 | Outpatient (CLI) | payer MEDICARE, BC ==
[~2021-05-24] MED LIST changes: +KETO10TA PO; +NITR-65 PO
--- NOTE | 2021-05-24 10:35 | Diagnostic Imaging Report ---
CLINICAL INDICATION: Patient with left proximal ureteral stone. EXAM: X-ray of the abdomen with multiple supine and upright views. COMPARISON: X-ray of the abdomen dated 05/04/2021. CT scan of the abdomen and pelvis without IV or enteric contrast dated 04/24/2021. FINDINGS: Interval air distention of the stomach. Otherwise, there is no evidence of intestinal obstruction. The previously seen stone in the proximal left ureter, on the comparison CT scan, is not visualized on this exam. Phleboliths again seen in left pelvis measuring roughly 3 mm. There are no stones overlying the kidneys or ureters, as visualized. There are degenerative spurs involving the spine. IMPRESSION: 1: The previously seen stone in the proximal left ureter, on the comparison CT scan, is not visualized on this exam. 2: Stable suspected phlebolith in the left pelvis. 3: Interval air distention of the stomach. Otherwise, there is no radiographic evidence for acute abdominal/ pelvic process or urinary tract stones. Dictated by: Dictated on workstation # [id number]
== END ==
LOC: RAD 09:06
PROVIDERS: ATTEND Urology
DX: N20.1 Calculus of ureter (principal)
CPT/HCPCS: 74018

== ENCOUNTER → 2022-05-18 | Outpatient (CLI) | payer MEDICARE, OTHER ==
--- NOTE | 2022-05-18 17:30 | Diagnostic Imaging Report ---
INDICATION: Pneumonia for two weeks. EXAMINATION: Two-view chest from 05/18/2022. COMPARISON: 06/27/2021. FINDINGS: A stable nodule in the right upper lung, likely calcified granuloma. There is a vague nodular density anterior to the lower thoracic spine on the lateral view measuring 1.2 cm in greatest dimension. This could be confluence of vessels with a nodule not excluded. No infiltrates or effusions. No pneumothorax. Heart and pulmonary vasculature are normal. IMPRESSION: 1. Questioned nodule in the posterior aspect of the lower chest on the lateral view only. Follow-up is recommended and if this persists, CT may be warranted. Remaining chest is stable. Dictated by: Dictated on workstation # [id number]
== END ==
LOC: RAD 15:56
PROVIDERS: ATTEND Family Medicine
DX: R09.89 Other specified symptoms and signs involving the circulatory and respiratory systems (principal); R05.9 Cough, unspecified
CPT/HCPCS: 71046

== ENCOUNTER 2022-10-15 10:49 | Emergency (ER) | payer MEDICARE, OTHER ==
[~2022-10-15] VITALS: Ht 172 cm; Wt 77.1 kg
--- NOTE | 2022-10-15 11:14 | ED Back Pain ---
General Chief Complaint: Back Problems Stated Complaint: LEFT SIDE BACK PAIN Nursing Triage Note: pt presents to ED with c/o left lower back pain that began a couple days ago. pt has hx of kidney stones and reports it feels the same. pt took hydrocodone early this morning but feels like it has worn off. denies n/v. denies painful or difficult urination. Source of Information: Patient Exam Limitations: No Limitations History of Present Illness Date Seen by Provider: Oct 15, 2022 Time Seen by Provider: 11:00 Initial Comments 72-year-old male presents to the ER with complaint of left flank pain that began a couple days ago. He has a history of kidney stones, states that this feels the same as previous kidney stones. He took a hydrocodone this morning, states it helped, but it has now worn off. He denies fevers, abdominal pain, nausea, vomiting, dysuria, hematuria. Reports that he has had to have lithotripsy in the past for his stones. Patient has a history of hypertension, found to be hypertensive here, denies headache, dizziness, blurry vision. States he took his blood pressure medications this morning. Allergies and Home Medications Allergies Coded Allergies: No Known Drug Allergies (Unverified , 10/01/19) Patient Home Medication List Home Medication List Reviewed: Yes Calcium Carbonate/Mag Oxide/Zn (Vynyfrd-Juttriaul-Ximr Tablet) 1 Each Tablet, 1 EACH PO DAILY, (Reported) Entered as Reported by: JALIL BATISTA on 04/30/21 1000 Ciprofloxacin HCl (Ciprofloxacin HCl) 500 Mg Tablet, 500 MG PO BID Prescribed by: NOÉ MELISSA on 04/24/21 1630 Fluticasone Propionate (Fluticasone Propionate) 15.8 Ml [place].susp, 15.8 ML NS DAILY, (Reported) Entered as Reported by: HARDEEP CAZARES on 10/01/19 1308 Glipizide (Glipizide) 5 Mg Tablet, 10 MG PO BID, (Reported) Entered as Reported by: HARDEEP CAZARES on 10/01/19 1308 Hydrocodone/Acetaminophen (Hydrocodone-Acetamin 5-325 mg) 1 Each Tablet, 1-2 TAB PO Q4H PRN for PAIN-MODERATE (5-7) Prescribed by: NOÉ MELISSA on 04/24/21 1021 Hydrocodone/Acetaminophen (Hydrocodone-Acetamin 5-325 mg) 1 Each Tablet, 1 TAB PO Q4H PRN for PAIN-MODERATE (5-7) Prescribed by: SETH HENRY on 06/27/21 1417 Hydrocodone/Acetaminophen (Hydrocodone-Acetamin 5-325 mg) 5 Mg-325 Mg Tablet, 1 TAB PO Q4H PRN for PAIN-MODERATE (5-7) Prescribed by: Elida Ray on 10/15/22 1226 Ketorolac Tromethamine (Ketorolac Tromethamine) 10 Mg Tablet, 10 MG PO PRN Prescribed by: LETICIA BYRNES on 05/04/21 0935 Lisinopril/Hydrochlorothiazide (Lisinopril-Hctz 20-12.5 mg Tab) 1 Each Tablet, 1 EACH PO DAILY, (Reported) Entered as Reported by: HARDEEP CAZARES on 10/01/19 1308 Lovastatin (Lovastatin) 20 Mg Tablet, 20 MG PO DAILY, (Reported) Entered as Reported by: HARDEEP CAZARES on 10/01/19 1308 Metformin HCl (Metformin HCl) 500 Mg Tablet, 500 MG PO TID, (Reported) Entered as Reported by: HARDEEP CAZARES on 10/01/19 1308 Nitrofurantoin Monohyd/M-Cryst (Macrobid 100 mg Capsule) 100 Mg Capsule, 1 TAB PO BID WITH MEALS Prescribed by: LETICIA BYRNES on 05/04/21 0935 Omeprazole (Omeprazole) 20 Mg Capsule.dr, 20 MG PO DAILY, (Reported) Entered as Reported by: HARDEEP CAZARES on 10/01/19 1308 Ondansetron (Ondansetron Odt) 4 Mg Tab.rapdis, 4 MG SL Q4H PRN for NAUSEA/VOMITING Prescribed by: NOÉ MELISSA on 04/24/21 1021 Pioglitazone HCl (Actos) 30 Mg Tablet, 30 MG PO DAILY, (Reported) Entered as Reported by: HARDEEP CAZARES on 10/01/19 1308 Tamsulosin HCl (Flomax) 0.4 Mg Cap, 0.4 MG PO DAILY Prescribed by: NOÉ MELISSA on 04/24/21 1021 Tamsulosin HCl (Flomax) 0.4 Mg Cap, 0.4 MG PO DAILY Prescribed by: LETICIA BYRNES on 05/04/21 0935 Tamsulosin HCl (Flomax) 0.4 Mg Cap, 0.4 MG PO DAILY Prescribed by: Elida Ray on 10/15/22 1225 Vitamin B Complex (Vitamin B Complex) 1 Each Capsule, 1 EACH PO DAILY, (Reported) Entered as Reported by: HARDEEP CAZARES on 10/01/19 1308 Review of Systems Constitutional: see HPI Past Mknhdct-Xyucta-Ipscit Hx Patient Social History Tobacco Use?: No Substance use?: No Alcohol Use?: No Pt feels they are or have been: No Immunizations Up To Date Tetanus Booster (TDap): Unknown Seasonal Allergies Seasonal Allergies: Yes Past Medical History Surgery/Hospitalization HX: DIABETES, GERD, TONSILECTOMY, VASECTOMY Surgeries: Yes (HEMORRHOIDECTOMY, CATARACTS, POLYP REMOVAL) Tonsillectomy, Vasectomy Respiratory: Yes (MILD) COPD Currently Using CPAP: No Currently Using BIPAP: No Cardiac: Yes (LEAKY VALVE DURING STRESS TEST) High Cholesterol, Hypertension, Valvular Heart Disease Neurological: No Sexually Transmitted Disease: No HIV/AIDS: No Genitourinary: Yes Kidney Stones Gastrointestinal: Yes (RECTAL BLEEDING) Gastroesophageal Reflux, Chronic Diarrhea Musculoskeletal: No Endocrine: Yes Diabetes, Non-Insulin dep HEENT: Yes (GLASSES, DENTURES) Loss of Vision: Denies Hearing Impairment: Denies Cancer: No Psychosocial: No Integumentary: No Blood Disorders: No Adverse Reaction/Blood Tranf: No (N/A) Physical Exam Vital Signs Vital Signs - First Documented 10/15/22 10:58 Temp 36.2 Pulse 87 Resp 18 B/P (MAP) 196/100 (132) Pulse Ox 97 O2 Delivery Room Air Capillary Refill : Less Than 3 Seconds Height, Weight, BMI Height: '" Weight: lbs. oz. kg; 26.00 BMI Method: General Appearance: No Apparent Distress, WD/WN Neck: Normal Inspection, Supple Cardiovascular: Regular Rate, Rhythm Respiratory: Lungs Clear, Normal Breath Sounds, No Accessory Muscle Use, No Respiratory Distress Gastrointestinal: Normal Bowel Sounds, Non Tender, Soft Back: No CVA Tenderness Extremity: Normal Inspection, Normal Range of Motion Neurologic/Psychiatric: Alert, Normal Mood/Affect Skin: Normal Color, Warm/Dry Progress/Results/Core Measures Results/Orders Lab Results Laboratory Tests Test 10/15/22 11:00 10/15/22 11:10 Range/Units Urine Color YELLOW Urine Clarity CLEAR Urine pH 6.0 5-9 Urine Specific [place] >=1.030 1.016-1.022 Urine Protein 1+ H NEGATIVE Urine Glucose (UA) NEGATIVE NEGATIVE Urine Ketones NEGATIVE NEGATIVE Urine Nitrite NEGATIVE NEGATIVE Urine Bilirubin NEGATIVE NEGATIVE Urine Urobilinogen 0.2 < = 1.0 MG/DL Urine Leukocyte Esterase NEGATIVE NEGATIVE Urine RBC (Auto) 1+ H NEGATIVE Urine RBC 10-25 H /HPF Urine WBC 0-2 /HPF Urine Squamous Epithelial Cells 0-2 /HPF Urine Crystals PRESENT H /LPF Urine Calcium Oxalate Crystals RARE H /LPF Urine Bacteria TRACE /HPF Urine Casts NONE /LPF Urine Mucus NEGATIVE /LPF Urine Culture Indicated NO White Blood Count 8.8 4.3-11.0 10^3/uL Red Blood Count 4.78 4.30-5.52 10^6/uL Hemoglobin 12.7 L 13.3-17.7 g/dL Hematocrit 41 40-54 % Mean Corpuscular Volume 85 80-99 fL Mean Corpuscular Hemoglobin 27 25-34 pg Mean Corpuscular Hemoglobin Concent 31 L 32-36 g/dL Red Cell Distribution Width 15.9 H 10.0-14.5 % Platelet Count 297 130-400 10^3/uL Mean Platelet Volume 9.6 9.0-12.2 fL Immature Granulocyte % (Auto) 1 % Neutrophils (%) (Auto) 62 42-75 % Lymphocytes (%) (Auto) 25 12-44 % Monocytes (%) (Auto) 9 0-12 % Eosinophils (%) (Auto) 3 0-10 % Basophils (%) (Auto) 1 0-10 % Neutrophils # (Auto) 5.5 1.8-7.8 10^3/uL Lymphocytes # (Auto) 2.2 1.0-4.0 10^3/uL Monocytes # (Auto) 0.8 0.0-1.0 10^3/uL Eosinophils # (Auto) 0.2 0.0-0.3 10^3/uL Basophils # (Auto) 0.1 0.0-0.1 10^3/uL Immature Granulocyte # (Auto) 0.1 0.0-0.1 10^3/uL Sodium Level 139 135-145 MMOL/L Potassium Level 4.3 3.6-5.0 MMOL/L Chloride Level 103 98-107 MMOL/L Carbon Dioxide Level 26 21-32 MMOL/L Anion Gap 10 5-14 MMOL/L Blood Urea Nitrogen 14 7-18 MG/DL Creatinine 1.17 0.60-1.30 MG/DL Estimat Glomerular Filtration Rate 65 BUN/Creatinine Ratio 12 Glucose Level 137 H 70-105 MG/DL Calcium Level 9.8 8.5-10.1 MG/DL Corrected Calcium 9.6 8.5-10.1 MG/DL Total Bilirubin 0.5 0.1-1.0 MG/DL Aspartate Amino Transf (AST/SGOT) 19 5-34 U/L Alanine Aminotransferase (ALT/SGPT) 19 0-55 U/L Alkaline Phosphatase 59 40-136 U/L Total Protein 7.1 6.4-8.2 GM/DL Albumin 4.2 3.2-4.5 GM/DL My Orders Orders - ELIDA BURTON APRN Comprehensive Metabolic Panel (10/15/22 11:09) Ed Iv/Invasive Line Start (10/15/22 11:09) Cbc With Automated Diff (10/15/22 11:09) Ct Abd/Pelvis Wo(Kidney Stone) (10/15/22 11:09) Ketorolac Injection (Toradol Injection) (10/15/22 11:15) Ns Iv 1000 Ml (Sodium Chloride 0.9%) (10/15/22 11:15) Ua Culture If Indicated (10/15/22 11:10) Medications Given in ED Current Medications Medications Dose Ordered Sig/Orlin Route Start Time Stop Time Status Last Admin Dose Admin Ketorolac Tromethamine 15 mg ONCE ONCE IVP 10/15/22 11:15 10/15/22 11:16 DC 10/15/22 11:21 15 MG Vital Signs/I&O 10/15/22 10/15/22 10:58 12:24 Temp 36.2 Pulse 87 66 Resp 18 18 B/P (MAP) 196/100 (132) 143/73 Pulse Ox 97 97 O2 Delivery Room Air Room Air Blood Pressure Mean: 132 Progress Progress Note : Progress Note Patient seen and evaluated, resting comfortably in bed, no acute distress. Based on exam and symptoms, this is likely nephrolithiasis, other differentials include muscle skeletal pain or pyelonephritis. Work-up initiated including CBC, CMP, UA CT abdomen pelvis. IV fluids and Toradol ordered. [address] reviewed. CBC and CMP shows no significant abnormalities. Urinalysis shows 10-25 RBCs, 0-2 WBCs, 0-2 squamous epithelial cells, trace bacteria, negative for nitrates and leukocytes. No concern for urinary tract infection. CT shows 3 mm stone in the proximal left ureter causing moderate left hydronephrosis. Also shows a nonobstructing right renal calculus. Results discussed with patient. Will discharge with pain medication and Flomax after IV fluids are complete. Patient reports that his pain is gone. Blood pressure has improved. Will give patient contact information of urologists in [place]. Discharge instructions and return precautions provided. Diagnostic Imaging Diagonstic Imaging: CT Plain Films/CT/US/NM/MRI: abdomen Comments [facility] [place] NAME: TARAN BELTRE [facility] REC#: [id number] PT STATUS: REG ER : 1950 PHYSICIAN: ELIDA BURTON APRN ADMIT DATE: 10/15/22/ER Draft Date of Exam:10/15/22 CT ABD/PELVIS WO(KIDNEY STONE) PROCEDURE: CT urinary tract, rule out kidney stone. TECHNIQUE: Multiple contiguous axial images were obtained through the abdomen and pelvis without the use of intravenous contrast. Auto Exposure Controls were utilized during the CT exam to meet ALARA standards for radiation dose reduction. INDICATION: Flank pain. COMPARISON: 06/27/2021. DISCUSSION: Lung bases are well-aerated. Normal heart size. No pleural or pericardial fluid. The gallbladder is contracted. The liver, pancreas, stomach, spleen, and adrenal glands are unremarkable. 3 mm nonobstructing right renal calculus. No hydronephrosis on the right. There is a 3 mm stone within the proximal left ureter causing moderate upstream hydronephrosis. The right ureter and distal left ureter decompressed. The bladder is decompressed. Prostate is normal in size. No obstruction, constipation, pneumatosis, or pneumoperitoneum. No ascites or adenopathy. The aorta is normal in caliber. No acute osseous abnormality identified. IMPRESSION: 1. 3 mm stone within the proximal left ureter causing moderate left hydronephrosis. 2. Nonobstructing right renal calculus. Dictated on workstation # [id number] Dict: 10/15/22 1134 Trans: 10/15/22 1137 [facility] [id number] Interpreted by: JILL UGALDE MD Electronically signed by: Departure Impression Primary Impression: Left ureteral stone Disposition: HOME, SELF-CARE Condition: Stable Departure-Patient Inst. Decision time for Depature: 12:10 Referrals: ADRIAN BECERRA MD (PCP/Family) Primary Care Physician Patient Instructions: Kidney Stone, Adult ED Add. Discharge Instructions: Take hydrocodone as needed, it can cause constipation, it can also make you sleepy. Take Flomax daily. Strain your urine to catch the kidney stone. You should decrease calcium intake in your diet, this may help reduce the number of stones you develop. Follow-up with a urologist of your choice, below are the contact information for the urologists in [place]. Return for severe pain, inability to urinate, fever, or any other new, concerning, or worsening symptoms. [facility] [address] [facility] [address], [place] [address], [place] [address] All discharge instructions reviewed with patient and/or family. Voiced understanding. Scripts Tamsulosin HCl (Flomax) 0.4 Mg Cap 0.4 MG PO DAILY, #30 CAP 0 Refills Prov: ELIDA BURTON APRN 10/15/22 Hydrocodone/Acetaminophen (Hydrocodone-Acetamin 5-325 mg) 5 Mg-325 Mg Tablet 1 TAB PO Q4H PRN for PAIN-MODERATE (5-7), #20 TAB 0 Refills Prov: ELIDA BURTON APRN 10/15/22 ELIDA BURTON APRN Oct 15, 2022 11:14
[2022-10-15 11:15] LABS: BILIRUBIN,URINE NEGATIVE (NEGATIVE); CLARITY,URINE CLEAR; COLOR,URINE YELLOW; GLUCOSE, URINE (UA) NEGATIVE (NEGATIVE); KETONES,URINE NEGATIVE (NEGATIVE); LEUKOCYTE ESTERASE ,URINE NEGATIVE (NEGATIVE); NITRITE,URINE NEGATIVE (NEGATIVE); PROTEIN,URINE 1+ (NEGATIVE)
[2022-10-15] MEDS ORDERED: KETOROLAC 15 MG/ML VIAL IVP ONE (11:15)
[2022-10-15] MEDS ORDERED: NS IV 1000 ML 1,000 ML IV SCH (11:15)
[2022-10-15 11:23] LABS: BASOPHILS # (AUTO) 0.1 10^3/uL (0.0-0.1); BASOPHILS % (AUTO) 1 % (0-10); EOSINOPHILS # (AUTO) 0.2 10^3/uL (0.0-0.3); EOSINOPHILS % (AUTO) 3 % (0-10); HEMATOCRIT 41 % (40-54); HEMOGLOBIN 12.7 g/dL (13.3-17.7); LYMPHOCYTES # (AUTO) 2.2 10^3/uL (1.0-4.0); LYMPHOCYTES % (AUTO) 25 % (12-44); MEAN CORPUSCULAR HEMOGLOBIN 27 pg (25-34); MEAN CORPUSCULAR HGB CONC 31 g/dL (32-36); MEAN CORPUSCULAR VOLUME 85 fL (80-99); MEAN PLATELET VOLUME 9.6 fL (9.0-12.2); MONOCYTES # (AUTO) 0.8 10^3/uL (0.0-1.0); MONOCYTES % (AUTO) 9 % (0-12); NEUTROPHILS # (AUTO) 5.5 10^3/uL (1.8-7.8); NEUTROPHILS % (AUTO) 62 % (42-75); PLATELET COUNT 297 10^3/uL (130-400); WHITE BLOOD COUNT 8.8 10^3/uL (4.3-11.0)
[2022-10-15 11:26] LABS: BACTERIA,URINE TRACE /HPF; CALCIUM OXALATE CRYSTALS,UR RARE /LPF; SQUAMOUS EPITHELIAL CELL,UR 0-2 /HPF; WBC,URINE 0-2 /HPF
[2022-10-15 11:30] LABS: ALBUMIN 4.2 GM/DL (3.2-4.5); POTASSIUM 4.3 MMOL/L (3.6-5.0)
[2022-10-15 11:31] LABS: CALCIUM 9.8 MG/DL (8.5-10.1)
[2022-10-15 11:32] LABS: TOTAL PROTEIN 7.1 GM/DL (6.4-8.2)
[2022-10-15 11:34] LABS: BILIRUBIN,TOTAL 0.5 MG/DL (0.1-1.0)
[2022-10-15 11:36] LABS: CREATININE SERUM 1.17 MG/DL (0.60-1.30)
--- NOTE | 2022-10-15 11:37 | Diagnostic Imaging Report ---
PROCEDURE: CT urinary tract, rule out kidney stone. TECHNIQUE: Multiple contiguous axial images were obtained through the abdomen and pelvis without the use of intravenous contrast. Auto Exposure Controls were utilized during the CT exam to meet ALARA standards for radiation dose reduction. INDICATION: Flank pain. COMPARISON: 06/27/2021. DISCUSSION: Lung bases are well-aerated. Normal heart size. No pleural or pericardial fluid. The gallbladder is contracted. The liver, pancreas, stomach, spleen, and adrenal glands are unremarkable. 3 mm nonobstructing right renal calculus. No hydronephrosis on the right. There is a 3 mm stone within the proximal left ureter causing moderate upstream hydronephrosis. The right ureter and distal left ureter decompressed. The bladder is decompressed. Prostate is normal in size. No obstruction, constipation, pneumatosis, or pneumoperitoneum. No ascites or adenopathy. The aorta is normal in caliber. No acute osseous abnormality identified. IMPRESSION: 1. 3 mm stone within the proximal left ureter causing moderate left hydronephrosis. 2. Nonobstructing right renal calculus. Dictated by: Dictated on workstation # [id number]
[2022-10-15] MEDS ORDERED: TMSL.4C PO ×2 (12:12→12:25)
[2022-10-15] MEDS ORDERED: ACHD5005 PO ×2 (12:12→12:25)
[2022-10-15 12:24] VITALS: BP 143/73
== END 2022-10-15 12:24 | disposition home or self-care (01) ==
LOC: EDUNIT# 10:49 → ER 10:52
DX: N13.2 Hydronephrosis with renal and ureteral calculous obstruction (principal); I10 Essential (primary) hypertension; Z79.899 Other long term (current) drug therapy; Z87.442 Personal history of urinary calculi
CPT/HCPCS: 36415; 74176; 80053; 81000; 85025